=== PATIENT | male | born 1940 | race Caucasian/White ===

== ENCOUNTER 2018-05-09 11:54 | Inpatient (IN) ==
[2018-05-09] MEDS ORDERED: Sod Chloride 0.9% Inj 1,000 ML IV.SIG SCH (12:30)
[2018-05-09 12:51] LABS: Baso % (Auto) 0.3 % (0.0-2.0); Eos % (Auto) 0.3 % (0.0-4.0); Hemoglobin 12.4 gm/dL (13.0-17.0); Lymph # (Auto) 2.9 th/mm3 (1.0-4.8); Lymph % (Auto) 34.2 % (9.0-44.0); Mean Corpuscular HGB Conc 35.5 % (32.0-36.0); Mean Corpuscular Hemoglobin 36.7 pg (27.0-34.0); Mean Corpuscular Volume 103.4 fL (80.0-100.0); Mean Platelet Volume 7.5 fL (7.0-11.0); Mono # (Auto) 0.7 th/mm3 (0.0-0.9); Mono % (Auto) 8.2 % (0.0-8.0); Neut # (Auto) 4.9 th/mm3 (1.8-7.7); Platelet Count 235 th/mm3 (150-450); Red Blood Count 3.38 mil/mm3 (4.50-5.90); Red Cell Distribution Width 13.5 % (11.6-17.2); White Blood Count 8.6 th/mm3 (4.0-11.0)
[2018-05-09 13:14] LABS: Calcium 8.5 mg/dL (8.5-10.1); Carbon Dioxide 24.4 meq/L (21.0-32.0)
[2018-05-09 13:17] LABS: Troponin I 0.02 ng/mL (0.02-0.05)
--- NOTE | 2018-05-09 13:49 | XR ---
EXAM DATE: 05/09/2018 1:36 PM EST AGE/SEX: 77 years / Male INDICATIONS: Chest pain and abnormal heart rhythm today CLINICAL DATA: This is the patient's initial encounter. Patient reports that signs and symptoms have been present for 1 day and indicates a pain score of Nonresponsive. MEDICAL/SURGICAL HISTORY: Carcinoma, prostatic. Hypertension. Non-responsive. COMPARISON: No prior exams available for comparison. FINDINGS: A single AP view of the chest demonstrates the lungs to be symmetrically aerated without evidence of mass, infiltrate or effusion. Linear atelectatic type changes right lung The cardiomediastinal conto urs are unremarkable. Osseous structures are intact. CONCLUSION: Negative for an acute process Electronically signed by: Jonatan Koroma MD 05/09/2018 1:47 PM EST
[2018-05-09] MEDS ORDERED: Acetaminophen 325 MG Tablet PO PRN (14:13)
--- NOTE | 2018-05-09 14:22 | P.HPIM ---
History of Present Illness Primary Care Physician: No Primary Care Physician Chief Complaint: Tachycardia History of Present Illness: Mr. Hubbard is a 77-year-old male. He has a past history of SVT tachycardia for which he was prescribed atenolol. 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 He is from [place] and has no local PCP or service employee here. He is being treated with oncology locally for prostate cancer. He has radiation daily at 10:30 AM. His next to treatment of radiation will be tomorrow at 10:30 AM. During his treatment today he was found to be in tachycardia. Heart rate was measured and patient was sent to the ER. He says he has not missed any of his atenolol doses. In the ER he is given diltiazem which caused a quick resolution of his tachycardia. EKG shows evidence of SVT rather than a flutter or A. fib. She denies any chest pain. No significant shortness of breath during this episode. No other complaints today. Review of Systems Constitutional: No fevers, no chills no night sweats, no fatigue, no weakness Eyes: No eye pain, no blurry vision, no loss of vision ENT: No sore throat, no ear pain, no rhinorrhea Cardiovascular: No chest pain, no tachycardia, palpitations, no syncope Respiratory: No wheezing, no cough, no shortness of breath Gastrointestinal: No abdominal pain, no black tarry stools, no bright red blood per rectum, no vomiting, no diarrhea Musculoskeletal: No joint pain, no muscle cramps, no stiffness Integumentary: No rash, no ulcers, no drainage Neurologic: No sensory loss, no loss of motor function, no dizziness Psychiatric: No behavioral changes, no hallucinations, no suicidal ideations [facility] Medical History Medical History Abnormal heart rhythm (Acute) HTN (hypertension) (Acute) History of radiation therapy (Acute) Mass of nose (Acute) Prostate cancer (Acute) Family History Family History Other Osteoarthritis Social History Social History Substance History: No History of Abuse Smoking Status: Never smoker How Often Do You Have a Drink Containing Alcohol: 2 to 4 times a month Recent Travel in [facility] within the Last 8 Weeks: No Recent Out of Country Travel within the Last 8 Weeks: No Immunization History Tetanus Immunization: Unsure Medications and Allergies Allergies Allergy/AdvReac Type Severity Reaction Status Date / Time No Known Allergies Allergy Verified 05/09/18 12:10 Home Medications Medication Instructions Recorded Confirmed Type atenolol 25 mg PO DAILY 05/09/18 05/09/18 History diphenoxylate-atropine [Lomotil] 1 tab PO Q6-8H PRN 05/09/18 05/09/18 History loperamide 2 mg PO BID PRN 05/09/18 05/09/18 History Active Medications: Active Medications Acetaminophen (Tylenol) 650 mg PO Q4H PRN PRN Reason: Temp > 100.4 Al Hydroxide/Mg Hydroxide (Milk Of Rachele Carrasquillo) 30 ml PO Q12H PRN PRN Reason: Mild Constipation Diltiazem HCl (Cardizem) 30 mg PO QID HEIDY Heparin Sodium (Porcine) (Heparin Inj) 5,000 units SQ Q12HR HEIDY Ondansetron HCl (Zofran Inj) 4 mg IV.PUSH Q6H PRN PRN Reason: NAUSEA OR VOMITING Sodium Chloride (Ns Flush) 2 ml IV.FLUSH BID HEIDY Sodium Chloride (Ns Flush) 2 ml IV.FLUSH PRN PRN PRN Reason: FLUSH AFTER USING IV ACCESS Physical Exam Vital signs: Last Vital Signs Temp 98.5 F 05/09/18 12:04 Pulse 58 L 05/09/18 13:05 Resp 18 05/09/18 13:05 BP 98/56 L 05/09/18 13:05 Pulse Ox 100 05/09/18 13:05 Intake & Output 05/07/18 05/08/18 05/09/18 05/10/18 06:59 06:59 06:59 06:59 Intake Total 1000 / 1000 Balance 1000 / 1000 Weight 74.389 kg Narrative: GENERAL: NAD, A&Ox3 HEAD: Normocephalic. NECK: Supple, trachea midline. No lymphadenopathy. EYES: No scleral icterus. No injection or drainage. CARDIOVASCULAR: Regular rate and rhythm without murmurs, gallops, or rubs. RESPIRATORY: Breath sounds equal bilaterally. No accessory muscle use. GASTROINTESTINAL: Abdomen soft, non-tender, nondistended. MUSCULOSKELETAL: No cyanosis, or edema. SKIN: Warm and dry. NEURO: No focal neurological deficits. Results Labs CBC & Chem 7: 05/09/18 12:40 05/09/18 12:40 Imaging Impressions Chest X-Ray 05/09/18 12:29 CONCLUSION: Negative for an acute process Caprini VTE Risk Assessment Caprini VTE Risk Assessment: Moderate/High Risk (score >= 2) Caprini Risk Assessment Model: Point Value = 1 Point Value = 2 Point Value = 3 Point Value = 5 Age 41-60 Minor surgery BMI > 25 kg/m2 Swollen legs Varicose veins or History of unexplained or recurrent spontaneous Oral contraceptives or hormone replacement Sepsis (< 1 month) Serious lung disease, including pneumonia (< 1 month) Abnormal pulmonary function Acute myocardial infarction Congestive heart failure (< 1 month) History of inflammatory bowel disease Medical patient at bed rest Age 61-74 Arthroscopic surgery Major open surgery (> 45 min) Laparoscopic surgery (> 45 min) Malignancy Confined to bed (> 72 hours) Immobilizing plaster cast Central venous access Age >= 75 History of VTE Family history of VTE Factor V Leiden Prothrombin [id number] Lupus anticoagulant Anticardiolipin antibodies Elevated serum homocysteine Heparin-induced thrombocytopenia Other congenital or acquired thrombophilia Stroke (< 1 month) Elective arthroplasty Hip, pelvis, or leg fracture Acute spinal cord injury (< 1 month) Prophylaxis Regimen: Total Risk Factor Score Risk Level Prophylaxis Regimen 0-1 Low Early ambulation 2 Moderate Order ONE of the following: *Sequential Compression Device (SCD) *Heparin 5000 units SQ BID 3-4 Higher Order ONE of the following medications: *Heparin 5000 units SQ TID *Enoxaparin/Lovenox 40 mg SQ daily (WT < 150 kg, CrCl > 30 mL/min) *Enoxaparin/Lovenox 30 mg SQ daily (WT < 150 kg, CrCl > 10-29 mL/min) *Enoxaparin/Lovenox 30 mg SQ BID (WT < 150 kg, CrCl > 30 mL/min) AND/OR *Sequential Compression Device (SCD) 5 or more Highest Order ONE of the following medications: *Heparin 5000 units SQ TID (Preferred with Epidurals) *Enoxaparin/Lovenox 40 mg SQ daily (WT < 150 kg, CrCl > 30 mL/min) *Enoxaparin/Lovenox 30 mg SQ daily (WT < 150 kg, CrCl > 10-29 mL/min) *Enoxaparin/Lovenox 30 mg SQ BID (WT < 150 kg, CrCl > 30 mL/min) AND *Sequential Compression Device (SCD) Assessment and Plan Plan 77-year-old male admitted secondary to tachycardia with history of prostate cancer, and active radiation therapy to prostate Tachycardia SVT Patient is previously on atenolol which did not control his SVT Currently in sinus rhythm with administration of diltiazem Continue diltiazem for now at 30 mg p.o. every 6 hours Consult cardiology Follow blood pressures closely Hold atenolol due to borderline low blood pressure Consider starting long-acting diltiazem tomorrow morning if this is a treatment which is causing him to have rate stability overnight Prostate cancer Active radiation therapy to prostate Next appointment is 05/10/2018 at 10:30 AM at the [facility]. Continue to follow with oncology as an outpatient Hypertension Not present today Follow blood pressures Atenolol on hold Diltiazem initiated DVT prophylaxis Heparin
--- NOTE | 2018-05-09 14:29 | ED ---
HPI General Chief Complaint: Arrhythmia / Palpitations Stated Complaint: Heart Complaint Time Seen by Provider: 05/09/18 12:20 Source: patient Mode of arrival: ambulatory Limitations: no limitations History of Present Illness HPI narrative: 77 M arrives from radiation therapy w Dr Servin for prostate CA. Pt HR was 150 in office. No cp/sob or palpitations. + Hx of tachycardia in the past but pt unable to elaborate in greater detail. + Diarrhea over past several days, nonbloody. No vomiting. Duration of tachycardia unknown to patient. Compliance with atenolol noted. MD complaint: Reports rapid heart beat Onset (ago): unknown Duration: intermittent Severity: severe Related Data Home Medications Medication Instructions Recorded Confirmed atenolol 25 mg PO DAILY 05/09/18 05/09/18 diphenoxylate-atropine [Lomotil] 1 tab PO Q6-8H PRN 05/09/18 05/09/18 loperamide 2 mg PO BID PRN 05/09/18 05/09/18 Allergies Allergy/AdvReac Type Severity Reaction Status Date / Time No Known Allergies Allergy Verified 05/09/18 12:10 Review of Systems ROS: all other systems reviewed are negative [facility] Medical History Medical History Abnormal heart rhythm (Acute) HTN (hypertension) (Acute) History of radiation therapy (Acute) Mass of nose (Acute) Prostate cancer (Acute) Family History Family History Other Osteoarthritis Social History Social History Substance History: No History of Abuse Smoking Status: Never smoker How Often Do You Have a Drink Containing Alcohol: 2 to 4 times a month Recent Travel in [facility] within the Last 8 Weeks: No Recent Out of Country Travel within the Last 8 Weeks: No Immunization History Tetanus Immunization: Unsure Exam Narrative Exam Narrative: GENERAL: 77 yo M, thin, pleasant, NAD SKIN: Focused skin assessment warm/dry. HEAD: Atraumatic. Normocephalic. EYES: Pupils equal and round. No scleral icterus. No injection or drainage. ENT: No nasal bleeding or discharge. Mucous membranes pink and moist. NECK: Trachea midline. No JVD. CARDIOVASCULAR: Rate approx 160s. Skin well perfused. RESPIRATORY: No accessory muscle use. Clear to auscultation. Breath sounds equal bilaterally. GASTROINTESTINAL: Abdomen soft, non-tender, nondistended. Hepatic and splenic margins not palpable. MUSCULOSKELETAL: No obvious deformities. No clubbing. No cyanosis. No edema. NEUROLOGICAL: Awake and alert. No obvious cranial nerve deficits. Motor grossly within normal limits. Normal speech. PSYCHIATRIC: Appropriate mood and affect; insight and judgment normal. Course Initial Documented Vital Signs Temperature 98.5 F 05/09/18 12:04 Pulse Rate 162 H 05/09/18 12:04 Respiratory Rate 20 05/09/18 12:04 Blood Pressure 109/76 05/09/18 12:04 Pulse Oximetry 99 05/09/18 12:04 Last Documented Vital Signs Temperature 98.5 F 05/09/18 12:04 Pulse Rate 58 L 05/09/18 13:05 Respiratory Rate 18 05/09/18 13:05 Blood Pressure 98/56 L 05/09/18 13:05 Pulse Oximetry 100 05/09/18 13:05 Medical Decision Making [facility] Narrative Medical decision making narrative: EKG shows rate of 153, qrs complexes appear regular CBC normal BMP essentially normal Tn 0.02 Pt received diltiazem 20mg iv here with prompt resolution of tachycardia d/w Dr Jerome for [facility] Medical Screen Exam Complete: Yes Emergency Medical Condition: Yes Lab Data Result diagrams: 05/09/18 12:40 05/09/18 12:40 Lab Results 05/09/18 05/09/18 Range/Units 12:40 12:40 WBC 8.6 (4.0-11.0) th/mm3 RBC 3.38 L (4.50-5.90) mil/mm3 Hgb 12.4 L (13.0-17.0) gm/dL Hct 35.0 L (39.0-51.0) % MCV 103.4 H (80.0-100.0) fL MCH 36.7 H (27.0-34.0) pg MCHC 35.5 (32.0-36.0) % RDW 13.5 (11.6-17.2) % Plt Count 235 (150-450) th/mm3 MPV 7.5 (7.0-11.0) fL Neut % (Auto) 57.0 (16.0-70.0) % Lymph % (Auto) 34.2 (9.0-44.0) % [place] % (Auto) 8.2 H (0.0-8.0) % Eos % (Auto) 0.3 (0.0-4.0) % Baso % (Auto) 0.3 (0.0-2.0) % Neut # (Auto) 4.9 (1.8-7.7) th/mm3 Lymph # (Auto) 2.9 (1.0-4.8) th/mm3 [place] # (Auto) 0.7 (0.0-0.9) th/mm3 Eos # (Auto) 0.0 (0.0-0.4) th/mm3 Baso # (Auto) 0.0 (0.0-0.2) th/mm3 WBC Differential . Differential Comment Auto diff final Sodium 136 (136-145) meq/L Potassium 4.0 (3.5-5.1) meq/L Chloride 101 (98-107) meq/L Carbon Dioxide 24.4 (21.0-32.0) meq/L Anion Gap 11 (5-15) meq/L BUN 11 (7-18) mg/dL Creatinine 1.02 (0.60-1.30) mg/dL Estimated GFR 70 L (>89) mL/min Random Glucose 133 H (74-106) mg/dL Calcium 8.5 (8.5-10.1) mg/dL Total Creatine Kinase 58 (39-308) U/L Troponin I 0.02 (0.02-0.05) ng/mL Imaging Data Radiologist's impression: Chest X-Ray 05/09/18 12:29 CONCLUSION: Negative for an acute process Discharge Plan Discharge Disposition Patient Disposition: ED Admit(ED Internal Use Only) Discharge Order Discharge Orders: ED Use Only Admit Order (Routine); Ordered 05/09/18 Ordered By: Gray Woods Physicians Team ED Provider: Gray Woods Primary Care Provider: Primary Care Theresa Pedraza Attending Provider: Gray Jerome Discharge Interventions Interventions: Vital Signs Last Done: 05/09/18 13:05 Status ED Status: Admitted Patient
[2018-05-09] MEDS ORDERED: Loperamide 2 MG Capsule PO ONE (15:04)
[2018-05-09] MEDS: Loperamide 2 MG Capsule PO SCH (17:54)
[2018-05-09] MEDS: dilTIAZem 30 MG Tablet PO SCH ×2 (17:54→21:24)
[2018-05-09] MEDS: Heparin - SQ 10,000 UNITS/ML Vial SQ SCH (21:24)
--- NOTE | 2018-05-09 21:30 | MB ---
cc: Horacio Martell MD DATE: 05/09/2018 REASON FOR CONSULTATION: Paroxysmal supraventricular tachycardia. HISTORY OF PRESENT ILLNESS: The patient is a very pleasant 77-year-old white male with a history of paroxysmal supraventricular tachycardia, prostate cancer, currently getting radiation therapy, history of borderline hypertension, who was sent to the hospital after radiation therapy today as he was found to be tachycardic. EKG in the emergency department showed supraventricular tachycardia. He was given intravenous Cardizem with holiness of sinus rhythm. The patient states he has been on atenolol for about the last 5 years for this history of supraventricular tachycardia. He has had very infrequent episodes, never lasting more than 10 minutes. Rarely he experiences generalized weakness with the episodes, but no dizziness, syncope or near syncope. He also denies angina, shortness of breath, pedal edema, paroxysmal nocturnal dyspnea. The patient has had difficulties with diarrhea during his radiation therapy, but his oral intake has been overall good. PAST MEDICAL HISTORY: 1. Paroxysmal supraventricular tachycardia. 2. Prostate cancer, currently getting radiation therapy. 3. Borderline hypertension. CARDIAC MEDICATIONS AT HOME: Tenormin 25 mg daily. ALLERGIES: NO KNOWN DRUG ALLERGIES. PAST SURGICAL HISTORY: 1. Two hernia repairs. 2. Melanoma resection. FAMILY HISTORY: Noncontributory. SOCIAL HISTORY: The patient denies any history of alcohol or tobacco abuse. REVIEW OF SYSTEMS: As in history of present illness, otherwise negative or noncontributory. He also denies headache, abdominal pain, melena, bright red blood per rectum, fevers. PHYSICAL EXAMINATION: VITAL SIGNS: His blood pressure 93/53 with a pulse of 62, respirations 18. GENERAL: He is a well-developed, well-nourished white male, in no acute distress. NECK: Jugular venous pressure is normal. Carotid pulses are 2+ bilaterally and without bruits. CHEST: Reveals clear lungs bolden. CARDIAC: He has a regular rhythm and rate without S3, S4, or murmur. ABDOMEN: He has a soft, nontender abdomen. Bowel sounds are present. There is no definite hepatosplenomegaly. EXTREMITIES: Reveals no clubbing, cyanosis or edema. EKG shows supraventricular tachycardia, nonspecific intraventricular conduction delay, nonspecific T-wave abnormalities. Chest x-ray shows no acute disease. LABORATORY DATA: WBC 8.6, hemoglobin 12.4, platelets 235. Potassium 4.0, BUN 11, creatinine 1.02, CK 58, troponin 0.02. IMPRESSION: Recurrent paroxysmal supraventricular tachycardia in a 77-year-old white male with a known history of SVT, history of prostate cancer, borderline hypertension. At this time, he appears to be back in sinus rhythm after intravenous Cardizem. There is no evidence for acute coronary syndrome or congestive heart failure. 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 I did discuss at length with the patient and his potential treatment options in the future. For the most part, he is minimally to mildly symptomatic with the episodes which have been overall infrequent in the last 5 years. RECOMMENDATIONS: 1. Agree with changing his Tenormin to diltiazem. 2. If he is stable in the morning, he can be discharged home. 3. I have also instructed him on vagal maneuvers. 4. Consider an SVT ablation in the future if he has significant recurrences. MD ESTEBAN Kraft/lety , 05:08 PM , 05:17 PM PRISCILLA
[2018-05-10 07:09] LABS: Baso % (Auto) 0.2 % (0.0-2.0); Eos % (Auto) 0.6 % (0.0-4.0); Hematocrit 30.2 % (39.0-51.0); Hemoglobin 10.3 gm/dL (13.0-17.0); Lymph # (Auto) 1.2 th/mm3 (1.0-4.8); Lymph % (Auto) 29.2 % (9.0-44.0); Mean Corpuscular HGB Conc 34.3 % (32.0-36.0); Mean Corpuscular Hemoglobin 35.8 pg (27.0-34.0); Mean Corpuscular Volume 104.4 fL (80.0-100.0); Mean Platelet Volume 7.4 fL (7.0-11.0); Mono # (Auto) 0.3 th/mm3 (0.0-0.9); Mono % (Auto) 8.2 % (0.0-8.0); Neut # (Auto) 2.5 th/mm3 (1.8-7.7); Neut % (Auto) 61.8 % (16.0-70.0); Platelet Count 184 th/mm3 (150-450); Red Blood Count 2.89 mil/mm3 (4.50-5.90); Red Cell Distribution Width 13.6 % (11.6-17.2); White Blood Count 4.1 th/mm3 (4.0-11.0)
[2018-05-10 07:42] LABS: Alanine Aminotransferase 28 U/L (12-78); Albumin 2.1 g/dL (3.4-5.0); Alkaline Phosphatase 83 U/L (45-117); Anion Gap 7 meq/L (5-15); Aspartate Aminotransferase 42 U/L (15-37); Blood Urea Nitrogen 8 mg/dL (7-18); Calcium 7.5 mg/dL (8.5-10.1); Carbon Dioxide 27.6 meq/L (21.0-32.0); Chloride 107 meq/L (98-107); Glomerular Filtration Rate Greater Than 89 mL/min (>89); Glucose,Random 101 mg/dL (74-106); Potassium 3.7 meq/L (3.5-5.1); Sodium 142 meq/L (136-145); Total Protein 5.5 g/dL (6.4-8.2)
[2018-05-10] MEDS: Loperamide 2 MG Capsule PO SCH (08:49)
[2018-05-10] MEDS: Heparin - SQ 10,000 UNITS/ML Vial SQ SCH ×2 (08:49→08:55)
--- NOTE | 2018-05-10 08:59 | P.PNCA ---
Subjective Interval history: Denies palpitations, dizziness, CP, dyspnea. Medications and Allergies Active Medications: Active Medications Acetaminophen (Tylenol) 650 mg PO Q4H PRN PRN Reason: Temp > 100.4 Al Hydroxide/Mg Hydroxide (Milk Of Rachele Carrasquillo) 30 ml PO Q12H PRN PRN Reason: Mild Constipation Diltiazem HCl (Cardizem Cd 24hr) 120 mg PO DAILY [facility] Last Admin: 05/10/18 08:49 Dose: 120 mg Heparin Sodium (Porcine) (Heparin Inj) 5,000 units SQ Q12HR [facility] Last Admin: 05/10/18 08:55 Dose: Not Given Loperamide HCl (Imodium) 2 mg PO TID [facility] Last Admin: 05/10/18 08:49 Dose: 2 mg Ondansetron HCl (Zofran Inj) 4 mg IV.PUSH Q6H PRN PRN Reason: NAUSEA OR VOMITING Sodium Chloride (Ns Flush) 2 ml IV.FLUSH BID [facility] Last Admin: 05/10/18 08:50 Dose: 2 ml Sodium Chloride (Ns Flush) 2 ml IV.FLUSH PRN PRN PRN Reason: FLUSH AFTER USING IV ACCESS Allergies Allergy/AdvReac Type Severity Reaction Status Date / Time No Known Allergies Allergy Verified 05/09/18 12:10 Home Medications Medication Instructions Recorded Confirmed Type diphenoxylate-atropine [Lomotil] 1 tab PO Q6-8H PRN 05/09/18 05/09/18 History loperamide 2 mg PO BID PRN 05/09/18 05/09/18 History Physical Exam Vital signs: Vital Signs 05/09/18 12:04 05/09/18 12:22 05/09/18 12:37 Temperature 98.5 F Pulse Rate 162 H 153 H 151 H Respiratory Rate 20 18 Blood Pressure 109/76 110/65 Pulse Oximetry 99 99 98 05/09/18 12:51 05/09/18 13:04 05/09/18 13:05 Temperature Pulse Rate 78 56 L 58 L Respiratory Rate 18 18 18 Blood Pressure 98/56 L Pulse Oximetry 100 100 100 05/09/18 14:22 05/09/18 15:09 05/09/18 16:26 Temperature Pulse Rate 63 64 62 Respiratory Rate 18 16 18 Blood Pressure 117/63 101/60 93/53 L Pulse Oximetry 100 100 98 05/09/18 17:50 05/09/18 18:00 05/09/18 20:00 Temperature 97.5 F L Pulse Rate 62 75 58 L Respiratory Rate 18 18 17 Blood Pressure 115/65 112/58 L 124/69 Pulse Oximetry 99 99 100 05/10/18 00:00 05/10/18 04:00 05/10/18 08:53 Temperature 97.8 F 97.2 F L Pulse Rate 63 67 Respiratory Rate 17 17 Blood Pressure 116/68 125/73 Pulse Oximetry 100 96 96 Intake & Output 05/09/18 05/10/18 05/10/18 18:59 06:59 18:59 Intake Total 1000 / 1000 120 / 120 Balance 1000 / 1000 120 / 120 Weight 74.389 kg 73.2 kg Intake: IV 1000 / 1000 NS Inj 1,000 ML @ 1000 mls/hr 1000 / 1000 IV.SIG BOLUS HEIDY Rx#:[id number] Oral 120 / 120 Other: # Voids 3 Date of Last Bowel Movement 05/09/18 # Bowel Movements 1 Weight On Admission 74.38 kg - Constitutional no acute distress - Routine Neck Exam Absent: JVD - Routine Respiratory Exam Present: CTA bilaterally - Routine Cardiovascular Exam Present: RRR, S1, S2. Absent: murmur, gallop - Routine Abdominal Exam Present: soft, normoactive bowel sounds. Absent: tenderness, organomegaly - Routine Extremities Exam Absent: cyanosis, clubbing, edema Results 05/10/18 05:52 05/10/18 05:52 Cardiac Enzymes 05/09/18 05/10/18 Range/Units 12:40 05:52 AST 42 H (15-37) U/L Troponin I 0.02 (0.02-0.05) ng/mL CBC 05/09/18 05/10/18 Range/Units 12:40 05:52 WBC 8.6 4.1 D (4.0-11.0) th/mm3 RBC 3.38 L 2.89 L (4.50-5.90) mil/mm3 Hgb 12.4 L 10.3 L D (13.0-17.0) gm/dL Hct 35.0 L 30.2 L (39.0-51.0) % Plt Count 235 184 (150-450) th/mm3 Neut # (Auto) 4.9 2.5 (1.8-7.7) th/mm3 Lymph # (Auto) 2.9 1.2 (1.0-4.8) th/mm3 [place] # (Auto) 0.7 0.3 (0.0-0.9) th/mm3 Eos # (Auto) 0.0 0.0 (0.0-0.4) th/mm3 Baso # (Auto) 0.0 0.0 (0.0-0.2) th/mm3 Comprehensive Metabolic Panel 05/09/18 05/10/18 Range/Units 12:40 05:52 Sodium 136 142 (136-145) meq/L Potassium 4.0 3.7 (3.5-5.1) meq/L Chloride 101 107 (98-107) meq/L Carbon Dioxide 24.4 27.6 (21.0-32.0) meq/L BUN 11 8 (7-18) mg/dL Creatinine 1.02 0.76 (0.60-1.30) mg/dL Calcium 8.5 7.5 L D (8.5-10.1) mg/dL AST 42 H (15-37) U/L ALT 28 (12-78) U/L Alkaline Phosphatase 83 (45-117) U/L Total Protein 5.5 L (6.4-8.2) g/dL Albumin 2.1 L (3.4-5.0) g/dL Intake and Output 05/09/18 05/10/18 05/10/18 22:59 06:59 14:59 Intake Total 120 / 120 Balance 120 / 120 Intake: Oral 120 / 120 Other: # Voids 3 Date of Last Bowel Movement 05/09/18 # Bowel Movements 1 Weight 73.2 kg 73.2 kg Weight On Admission 74.38 kg - Imaging and Cardiology Imaging: Impressions Chest X-Ray 05/09/18 12:29 CONCLUSION: Negative for an acute process Assessment and Plan - Assessment (1) Paroxysmal supraventricular tachycardia Code(s): I47.1 - Supraventricular tachycardia Status: Chronic Plan: Stable overnight. No further SVT except very brief jose r of atrial tachycardia. OK for discharge today from a cardiac standpoint on Cardizem CD 120 mg qd. 4 week f/u with me, consider ablation of his SVT in the future if he has significant recurrences. - Plan Code Status: full code Discussed Condition With: patient
[2018-05-10] MEDS ORDERED: dilTIAZem CD 120 MG Capsule PO SCH (09:00)
--- NOTE | 2018-05-10 09:11 | P.PNIM ---
Subjective Interval history: Patient reports no complaints of chest pain, palpitations, nor any shortness of breath. Was seen by cardiology this morning and cleared to go home. He has a pending radiation treatment at 1030 this morning. Physical Exam Vital signs: Last Vital Signs Temp 97.2 F L 05/10/18 04:00 Pulse 67 05/10/18 04:00 Resp 17 05/10/18 04:00 BP 125/73 05/10/18 04:00 Pulse Ox 96 05/10/18 08:53 Intake & Output 05/08/18 05/09/18 05/10/18 05/11/18 06:59 06:59 06:59 06:59 Intake Total 1120 / 1120 Balance 1120 / 1120 Weight 73.2 kg Narrative: GENERAL: NAD, A&Ox3 CARDIOVASCULAR: Regular rate and rhythm without murmurs, gallops, or rubs. RESPIRATORY: Breath sounds equal bilaterally. No accessory muscle use. GASTROINTESTINAL: Abdomen soft, non-tender, nondistended. MUSCULOSKELETAL: No cyanosis, or edema. SKIN: Warm and dry. NEURO: No focal neurological deficits. Alert and oriented x3 Results Labs CBC & Chem 7: 05/10/18 05:52 05/10/18 05:52 Imaging Imaging: Impressions Chest X-Ray 05/09/18 12:29 CONCLUSION: Negative for an acute process Assessment and Plan (1) Paroxysmal supraventricular tachycardia: Code(s): I47.1 - Supraventricular tachycardia Status: Chronic Plan 77-year-old white male admitted secondary tachycardia with a history of prostate cancer with active radiation treatment SVTnow resolved, patient's previous atenolol was discontinued. He is currently in normal sinus rhythm on telemetry monitoring. Will start diltiazem CD 120 mg p.o. daily. Prescription given. Patient has been seen by cardiology Dr. Marley and clear for discharge. It was recommended if patient has any recurrence of SVT to consider EP study/ablation History of prostate cancercontinue with radiation therapy today at 1030 at [facility]. Hypertension, chronic essentialcurrently blood pressure controlled continue with diltiazem, stop atenolol DVT prophylaxisheparin Discharge patient to home Condition on discharge: Improved Cardiac diet as tolerated Ad Gsiela activity Rx written: Diltiazem CD 120 mg p.o. daily Follow-up with primary care physician Follow-up with cardiology Dr. Martell Progress Note: Quality VTE Deep Vein Thrombosis/Pulmonary Embolism Present on Admission: No
--- NOTE | 2018-05-10 09:39 | ECG ---
Date Performed: 05/09/2018 Time Performed: 12:17:37 PTAGE: 77 years EKG: sinus tachycardia MODERATE INTRAVENTRICULAR CONDUCTION DELAY MODERATE ST DEPRESSION ABNORMA L QRS-T ANGLE ABNORMAL ECG NO PREVIOUS TRACING DOCTOR: Cr De La Cruz Interpretating Date/Time 05/10/2018 09:38:46
== END 2018-05-10 10:11 | disposition home or self-care (01) ==
LOC: NEPE 11:54 → NEDA 14:25 → N04 19:30
PROVIDERS: ADMIT Family Medicine; ATTEND Family Medicine
CPT/HCPCS: 71010; 71045; 80048; 80053; 82550; 84484; 85025; 93005; J1644; J7030